=== PATIENT | male | born 1980 | race Caucasian/White ===

== ENCOUNTER 2018-08-19 10:08 | Inpatient (IN) | payer SELFPAY ==
[~2018-08-19] VITALS: Ht 180.3 cm; Wt 77.6 kg
--- NOTE | ~2018-08-19 | CON ---
[place], [place] REPORT OF CONSULTATION NAME: GAVIN KASPER SR UNIT #: [id number] ROOM: [facility] DOCTOR: ABILIO MANN MD,DELTA BIRTHDATE: [birth year] DOS: The patient was ordered consultation by the hospitalist service. The patient was transferred to another facility prior to assessment. He has been noted with finding of hemoptysis with interstitial infiltration noted in the lung, possible pulmonary hemorrhage considered. For further appropriate workup, the patient was recommended for transfer to tertiary care facility. The patient was transferred from this hospital to another outlying tertiary care facility. DELTA KNOX MD CM:CONSTR:REPORT OF CONSULTATION 1310 08/22/18 0029 interface
--- NOTE | ~2018-08-19 | EKG ---
[place], [place] ELECTROCARDIOGRAM REPORT NAME: GAVIN KASPER SR UNIT #: [id number] ROOM: [facility] DOCTOR: ELVIS DRAFT REPORT BIRTHDATE: [birth year] [facility] Test Date: 2018-08-19 Test Time: 11:30:00 Pat Name: GAVIN KASPER Department: Room: 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
[~2018-08-19 10:08] MED LIST: ALEVE220 MG PO; IBU-8800 MG PO; NAPROSYN500 MG PO; TRAMADOL HCL50 MG PO; TYLENOL500 MG PO; VICODIN 5/500 505 MG PO; VICODIN ES 7501 TAB PO
[2018-08-19 10:10] VITALS: BP 116/74
[2018-08-19 12:06] LABS: BASO % 0.1 % (0.0-1.0); EOS % 0.1 % (1.0-4.0); HEMATOCRIT 46.7 % (42.0-52.0); HEMOGLOBIN 15.5 g/dl (14.0-18.0); LYMPH # 2.1 10*3/uL (1.3-4.4); LYMPH % 21.9 % (27.0-41.0); MEAN CELL VOLUME 90.7 fl (80.0-94.0); MEAN CORPUSCULAR HGB 30.1 pg (27.0-31.0); MEAN CORPUSCULAR HGB CONC 33.2 g/dl (33.0-37.0); MEAN PLATELET VOLUME 10.4 fl (9.6-12.3); MONO # 1.1 10*3/uL (0.1-1.0); MONO % 11.4 % (3.0-9.0); NEUT # 6.2 10*3/uL (2.3-7.9); NEUT % 66.2 % (47.0-73.0); PLATELET COUNT AUTOMATED 218 10*3/uL (130-400); RED BLOOD COUNT 5.15 10*6/uL (4.50-5.90); RED CELL DISTRI WIDTH 12.8 % (0-14.5); WHITE BLOOD COUNT 9.4 10*3/uL (4.8-10.8)
[2018-08-19 12:17] LABS: ACT PARTIAL THROMBO TIME 28.4 SECONDS (20.8-31.5)
[2018-08-19 12:29] LABS: ALBUMIN 3.5 gm/dl (3.1-4.5); ALKALINE PHOSPHATASE 64 U/L (45-117); BUN 13 mg/dl (7-24); CHLORIDE 100 mmol/L (98-107); CREATININE 1.13 mg/dL (0.70-1.30); LIPASE 94 U/L (73-393); POTASSIUM 3.5 mmol/L (3.5-5.1); SGOT/AST 28 IU/L (3-35); SGPT/ALT 30 U/L (12-78); SODIUM 134 mmol/L (136-145)
[2018-08-19 12:30] LABS: TROPONIN I < 0.015 ng/ml (<0.045)
[2018-08-19 14:10] VITALS: BP 118/76
[2018-08-19 14:16] VITALS: BP 154/72
--- NOTE | 2018-08-19 14:16 | NUR ---
Time: 1415 A 37 year old MALE admitted to under services of ALICE DE JESUS DO Pt. arrived via wheel chair from ER. Chief complaint: SOB, BODYACHES.. ZUHAIR SIMON
--- NOTE | 2018-08-19 14:40 | NUR ---
DR. DENEEN MONACO MADE AWARE THAT PT IS ON FLOOR, PT HAS NO HOME MEDS, AND PT HAS TEMP 100.6 ORAL, N.O. RECEIVED.
--- NOTE | 2018-08-19 15:11 | NUR ---
PATIENT MEDICATED WITH ZOFRAN FOR C/O NAUSEA AND TYLENOL 975MG PO FOR XWJT=[phone]. WILL MONITOR
--- NOTE | 2018-08-19 15:12 | NUR ---
Time: 1415 A 37 year old MALE admitted to under services of ALICE DE JESUS DO, Pt. arrived via wheel chair from ER. Chief complaint: SOB, BODY ACHES. ZUHAIR SIMON
--- NOTE | 2018-08-19 16:01 | NUR ---
PATIENT TEMP IS BETTER AT THIS TIME TEMP=99.5F. ZOFRAN & TYLENOL EFFECTIVE.
[2018-08-19 20:00] VITALS: BP 155/69
--- NOTE | 2018-08-19 20:59 | NUR ---
ASSUMED CARE OF PATIENT. PATIENT IS RESTING IN BED WITH EASY AND REGULAR RESPERS ON ROOM AIR. ASSESSMENT IS COMPLETE WITH NO S/S OF DISTRESS AT THIS TIME. PATIENT DOES C/O BODY ACHES, COUGH, AND SINUS HEADACHE. BED IS LOW, LOCKED, AND CALL LIGHT IS WITHIN REACH. SEE SHIFT ASSESSMENT.
--- NOTE | 2018-08-19 23:55 | NUR ---
SPKE WITH DR. STRONG REGARDING PREVIOUS TYLENOL GIVEN UNEFFECTIVE, SEE NEW ORDERS.
[2018-08-20] VITALS: BP 129/63
[2018-08-20 07:25] LABS: BASO % 0.1 % (0.0-1.0); LYMPH % 8.3 % (27.0-41.0); MEAN CELL VOLUME 91.5 fl (80.0-94.0); MEAN CORPUSCULAR HGB 30.6 pg (27.0-31.0); MEAN CORPUSCULAR HGB CONC 33.4 g/dl (33.0-37.0); MEAN PLATELET VOLUME 11.2 fl (9.6-12.3); MONO # 0.8 10*3/uL (0.1-1.0); MONO % 6.5 % (3.0-9.0); NEUT # 9.9 10*3/uL (2.3-7.9); NEUT % 84.8 % (47.0-73.0); PLATELET COUNT AUTOMATED 205 10*3/uL (130-400); RED BLOOD COUNT 4.35 10*6/uL (4.50-5.90); RED CELL DISTRI WIDTH 12.8 % (0-14.5); WHITE BLOOD COUNT 11.6 10*3/uL (4.8-10.8)
[2018-08-20 07:28] LABS: HEMATOCRIT 39.8 % (42.0-52.0); HEMOGLOBIN 13.3 g/dl (14.0-18.0)
--- NOTE | 2018-08-20 07:30 | NUR ---
BEDSIDE REPORT OBTAINED FROM ARLYN-GUS. PATIENT IS RESTING IN BED, EYES CLOSED. NO DISTRESS NOTED, RESP ARE ERND ON ROOM AIR. BED IS LOCKED IN LOWEST POSITION, CALL LIGHT LEFT WITHIN REACH.
[2018-08-20 07:36] LABS: BUN 15 mg/dl (7-24); CHLORIDE 106 mmol/L (98-107); CREATININE 1.03 mg/dL (0.70-1.30); PHOSPHOROUS 3.5 mg/dL (2.5-4.9); POTASSIUM 4.2 mmol/L (3.5-5.1); SODIUM 137 mmol/L (136-145)
[2018-08-20 08:00] VITALS: BP 139/73
--- NOTE | 2018-08-20 08:50 | NUR ---
INFORMED THAT PATIENT HAD BLOOD TING SPUTUM AT THIS TIME AND STATED HE HAD T/O NIGHT. INFORMED THAT LUNG SOUNDS ARE WORSE FROM YESTERDAY W/ PATIENT STATED SOB. STATES TO GET EXTRA SET OF VITALS AND HE'LL BE UP TO SEE.
[2018-08-20 08:55] VITALS: BP 139/65
--- NOTE | 2018-08-20 08:55 | NUR ---
AT BEDSIDE AWARE OF RECENT VITALS WITH P.OX SAT AT 86% ROOM AIR & TACHYCARDIA, PATIENT UNABLE TO TAKE BREATH RESP, PLACED ON O2 3LPM NC. RESP INCREASED TO 94% ON 3LITERS. DOCTOR STATES STAT CTA WILL BE PLACED.
--- NOTE | 2018-08-20 09:00 | NUR ---
Laborer Chees[employer] in to talk to patient. Patient states lives at home with family. There are few steps in the home. Physician: none Pharmacy: [facility] Home health services: none Patient's level of ADLs: INDEPENDENT Patient has working utilities: all working DME: none Follow-up physician's appointment after d/c: will be made by hospitalist nurse director upon discharge Does patient want to access PORTAL?: no Discharge plan discussed with patient, patient lives at home. is independent in adls and ambualtion, patient will be going home when able and denies any home needs. BRIDGETTE CHAUDHARY
--- NOTE | 2018-08-20 10:08 | NUR ---
DR. MONACO INFORMED OF PATIENT P.OX RE-EVAL STATUS. P.OX OF 3LPM=89-90% INCREASED TO NC TO 6LPM P.OX=89-90%, FACE MASK APPLIED P.OX 90-91%. DOCTOR STATES TO CALL TO HAVE THEM TO COME UP NOW FOR CTA AND AFTERWARDS TRANSFER TO UNIT. SECONDARY ENGLISH TEACHER MADE AWARE. RADIOLOGY CALLED AND INFORMED.
--- NOTE | 2018-08-20 10:30 | NUR ---
TRANSPORT P/U FOR CTA.
--- NOTE | 2018-08-20 10:40 | NUR ---
REPORT GIVEN TO PAIGE-GUS IN [facility]. PATIENT AT CTA NOW, WILL BE COMING TO [facility] AFTERWARDS.
[2018-08-20 10:50] LABS: ABG BASE EXCESS -2.8 mmol/L (-2.0-2.0); ARTERIAL BLOOD GAS PCO2 26.7 mmHg (35-45); ARTERIAL BLOOD GAS PH 7.469 (7.35-7.45); ARTERIAL BLOOD GAS PO2 78.4 mmHg (80-90)
[2018-08-20 11:00] VITALS: BP 110/60
--- NOTE | 2018-08-20 11:00 | NUR ---
BACK FROM CT - VSS. SPUTUM FOR BLOOD TINGED SENT FOR TESTING, MRSA NARES DONE. PLACED ON NC5L HIGH FLOW
--- NOTE | 2018-08-20 14:37 | NUR ---
AFTER SPEAKING WITH DR KNOX ABOUT BLOODY SPUTUM HE REQUESTED A BRONCH BE SCHEDULED FOR THURSDAY BUT IF HE WORSENS OVER THE WEEKEND HE WILL DO IT SOONER. JUST RECEIVED A RETURN CALL FROM DR KNOX AND REQUESTED PATIENT BE TRANSFERRED OUT NOW.
[2018-08-20 16:00] VITALS: BP 126/70
--- NOTE | 2018-08-20 17:04 | NUR ---
PATIENT HAVING COUGHING FITS THAT DROPS SATS TO 89% ON NC5L INCREASED TO NC6L
--- NOTE | 2018-08-20 20:11 | NUR ---
REPORT CALLED TO [facility] HERE.
== END 2018-08-20 20:11 | disposition short-term general hospital (02) | DRG 871 ==
LOC: ED 10:08 → EDHOLD 13:26 → 4E 13:45 → ICCU 08-20 10:56
PROVIDERS: Emergency Medicine; Internal Medicine; ADMIT Internal Medicine
DX: A41.89 Other specified sepsis (principal); J10.00 Influenza due to other identified influenza virus with unspecified type of pneumonia; J96.01 Acute respiratory failure with hypoxia; E87.1 Hypo-osmolality and hyponatremia; R04.2 Hemoptysis; E86.0 Dehydration; D64.9 Anemia, unspecified; R73.9 Hyperglycemia, unspecified; R03.0 Elevated blood-pressure reading, without diagnosis of hypertension; Z87.891 Personal history of nicotine dependence; Z82.49 Family history of ischemic heart disease and other diseases of the circulatory system; Z80.6 Family history of leukemia

== ENCOUNTER 2019-06-10 12:35 | Emergency (ER) | payer OTHER ==
[~2019-06-10] VITALS: Ht 175.2 cm; Wt 83.9 kg
[2019-06-10] MEDS ORDERED: CYCLOBENZAPRINE10 MG PO (14:18)
[2019-06-10] MEDS ORDERED: NAPROSYN500 MG PO (14:18)
[2019-06-10] MEDS ORDERED: TYLENOL325 M1 PO (14:18)
== END 2019-06-10 14:21 | disposition home or self-care (01) ==
LOC: ED 12:35
DX: M54.2 Cervicalgia (principal); M25.512 Pain in left shoulder; R20.0 Anesthesia of skin; Z87.891 Personal history of nicotine dependence; X50.0XXA Overexertion from strenuous movement or load, initial encounter; Y93.89 Activity, other specified; Y92.89 Other specified places as the place of occurrence of the external cause; Y99.0 Civilian activity done for income or pay

== ENCOUNTER → 2021-04-12 | Outpatient (CLI) | payer OTHER ==
[~2021-04-12] MED LIST changes: +CYCLOBENZAPRINE10 MG PO; +TYLENOL325 M1 PO
== END | disposition home or self-care (01) ==
LOC: COVID19 15:44
PROVIDERS: ATTEND Internal Medicine
DX: Z11.52 Encounter for screening for COVID-19 (principal)

== ENCOUNTER 2024-08-31 12:58 | Emergency (ER) | payer OTHER ==
[~2024-08-31] VITALS: Ht 172.7 cm; Wt 70.3 kg
[2024-08-31] MEDS ORDERED: BUPRENORPHINE HY8 MG SL (13:06)
[2024-08-31] MEDS ORDERED: Ketorolac Tromethamine 30 MG/ML VIAL IM ONE (13:15)
[2024-08-31] MEDS ORDERED: AMOX-CLAV 875-1 EACH PO (14:22)
== END 2024-08-31 14:31 | disposition home or self-care (01) ==
LOC: ED 12:58
DX: J18.9 Pneumonia, unspecified organism (principal); Z79.899 Other long term (current) drug therapy